=== PATIENT | female | born 1975 | race Caucasian/White ===

== ENCOUNTER 2017-02-20 18:12 | Inpatient (IN) | payer OTHER ==
[2017-02-20] MEDS ORDERED: Oxytocin in LR* 20 UNITS/1,000 ML BAG IVPB ONE (20:44)
[2017-02-20] MEDS ORDERED: Oxytocin in LR* 20 UNITS/1,000 ML BAG IVPB SCH (21:00)
[2017-02-20] MEDS ORDERED: Acetaminophen TAB* 325 MG PO ONE (21:21)
[2017-02-20 22:02] LABS: Hematocrit 39 % (35-47); Hemoglobin 12.9 g/dl (12.0-16.0); Mean Corpuscular HGB Conc 33 g/dl (31-36); Mean Corpuscular Hemoglobin 29 pg (27-31); Mean Corpuscular Volume 88 fL (80-97); Mean Platelet Volume 8 um3 (7.4-10.4); Red Blood Count 4.46 10^6/ul (4.0-5.4); Red Cell Distribution Width 15 % (10.5-15)
[2017-02-21] MEDS ORDERED: Calcium Carbonate CHEW TAB* 500 MG (TUMS) PO PRN (01:34)
[2017-02-21] MEDS ORDERED: Promethazine INJ(RESTRICTED)* 25 MG/ML 1 ML VIAL IV ONE (02:40)
[2017-02-21] MEDS ORDERED: Nalbuphine* 20 MG/ML 1 ML VIAL IV ONE (02:40)
[2017-02-21] MEDS ORDERED: Nalbuphine* 20 MG/ML 1 ML VIAL ONE ×2 (02:40→02:42)
[2017-02-21] MEDS ORDERED: Promethazine INJ(RESTRICTED)* 25 MG/ML 1 ML VIAL ONE (02:40)
[2017-02-21] MEDS ORDERED: Glycerin ADULT SUPP PR PRN (06:18)
[2017-02-21] MEDS ORDERED: Dibucaine 1% 28.35 GM TUBE PR PRN (06:18)
[2017-02-21] MEDS ORDERED: oxyCODONE/Acetamin 5/325 MG* TAB PO PRN (06:18)
[2017-02-21] MEDS ORDERED: Acetaminophen TAB* 325 MG PO PRN (06:18)
[2017-02-21] MEDS ORDERED: Witch Hazel PAD* JAR TOPICAL PRN (06:18)
[2017-02-21] MEDS ORDERED: Oxytocin in LR* 20 UNITS/1,000 ML BAG IVPB SCH (07:00)
[2017-02-21] MEDS: Docusate CAP* 100 MG PO SCH ×3 (09:08→21:08)
[2017-02-21] MEDS: Ibuprofen TAB* 600 MG PO PRN ×3 (09:08→21:08)
[2017-02-22 07:30] VITALS: BP 130/87
[2017-02-22] MEDS ORDERED: Ferrous Gluconate TAB* 324 MG TAB PO SCH (09:00)
[2017-02-22 09:26] LABS: Hematocrit 37 % (35-47); Hemoglobin 11.8 g/dl (12.0-16.0); Mean Corpuscular HGB Conc 32 g/dl (31-36); Mean Corpuscular Hemoglobin 29 pg (27-31); Mean Corpuscular Volume 90 fL (80-97); Mean Platelet Volume 8 um3 (7.4-10.4); Red Blood Count 4.09 10^6/ul (4.0-5.4); Red Cell Distribution Width 16 % (10.5-15); White Blood Count 14.7 10^3/ul (3.5-10.8)
[2017-02-22] MEDS: Ibuprofen TAB* 600 MG PO PRN (10:12)
[2017-02-22] MEDS: Docusate CAP* 100 MG PO SCH (10:12)
== END 2017-02-22 11:45 | disposition home or self-care (01) | DRG 560 ==
LOC: MCHOBOUT 18:12 → MCHOB 18:45
PROVIDERS: ADMIT Midwife; ATTEND Midwife
PROC: 10E0XZZ Delivery of Products of Conception, External Approach (ICD-10-PCS; principal; 2017-02-21)
DX: O42.02 Full-term premature rupture of membranes, onset of labor within 24 hours of rupture (principal); O99.344 Other mental disorders complicating childbirth; F31.9 Bipolar disorder, unspecified; F41.9 Anxiety disorder, unspecified; O09.523 Supervision of elderly multigravida, third trimester; Z3A.37 37 weeks gestation of pregnancy; Z37.0 Single live birth
CPT/HCPCS: 36415; 85025; 85027; 86850; 86900; 86901; A9270-GY; J2300; J2550